=== PATIENT | male | born 1950 | race Caucasian/White ===

== ENCOUNTER → 2024-12-08 11:12 | Outpatient (REF) | payer MEDICARE, SELFPAY | LOC: DHSLP 11:12 | PROVIDERS: ATTENDING PHYSICIAN Internal Medicine Critical Care Medicine; FAMILY PHYSICIAN Internal Medicine | DX: G47.33 Obstructive sleep apnea (adult) (pediatric) (principal) | CPT/HCPCS: 95800 ==

== ENCOUNTER → 2024-12-14 10:44 | Outpatient (REF) | payer MEDICARE, SELFPAY | LOC: HWRAD 10:44 | PROVIDERS: ATTENDING PHYSICIAN Internal Medicine Critical Care Medicine; FAMILY PHYSICIAN Internal Medicine | DX: J98.4 Other disorders of lung (principal) | CPT/HCPCS: 71250 ==

== ENCOUNTER → 2024-12-16 09:38 | Outpatient (REF) | payer MEDICARE, SELFPAY | LOC: RST 09:38 | PROVIDERS: ATTENDING PHYSICIAN Internal Medicine Critical Care Medicine; PRIMARYCARE PHYSICIAN Internal Medicine | DX: R06.02 Shortness of breath (principal); Z91.89 Other specified personal risk factors, not elsewhere classified | CPT/HCPCS: 71046; 74230; 92611 ==

== ENCOUNTER → 2025-01-22 17:37 | Outpatient (REF) | payer MEDICARE, SELFPAY | LOC: RAD 17:37 | PROVIDERS: ATTENDING PHYSICIAN Internal Medicine Critical Care Medicine; FAMILY PHYSICIAN Internal Medicine | DX: R06.02 Shortness of breath (principal) | CPT/HCPCS: 71046 ==